=== PATIENT | female | born 2000 | race Two or more races ===

== ENCOUNTER → 2023-05-02 | Outpatient (REF) | payer OTHER | LOC: M PLALAB 14:37 | PROVIDERS: ATTEND Advanced Practice Midwife | DX: Z34.01 Encounter for supervision of normal first pregnancy, first trimester (principal) ==

== ENCOUNTER → 2023-05-02 | Outpatient (CLI) | payer OTHER ==
[2023-05-02 15:48] LABS: HEMATOCRIT 41.1 % (36.0-47.0); HEMOGLOBIN 14.4 g/dl (12.0-15.5); MEAN CORPUSCULAR HEMOGLOBIN 30.9 pg (27.0-33.0); MEAN CORPUSCULAR VOLUME 88.2 fl (80.0-96.0); PLATELET COUNT, AUTOMATED 378 10^3/uL (150-450); RED BLOOD COUNT 4.66 10^6/uL (4.00-5.40); WHITE BLOOD COUNT 12.4 10^3/uL (4.0-10.0)
[2023-05-02 16:47] LABS: HIV 1&2 SCREEN NEGATIVE (NEGATIVE)
[2023-05-02 16:54] LABS: HEPATITIS C VIRUS ABY INDEX 0.04 INDEX (<0.8)
[2023-05-02 17:15] LABS: GC DNA AMPLIFICATION NEGATIVE (NEGATIVE)
== END ==
LOC: M PLALAB 14:51
PROVIDERS: ATTEND Advanced Practice Midwife
DX: Z34.01 Encounter for supervision of normal first pregnancy, first trimester (principal)

== ENCOUNTER → 2023-06-28 | Outpatient (CLI) | payer OTHER | LOC: M WHC 14:28 | PROVIDERS: ATTEND Obstetrics & Gynecology | DX: Z34.92 Encounter for supervision of normal pregnancy, unspecified, second trimester (principal) ==

== ENCOUNTER → 2023-08-15 | Outpatient (CLI) | payer OTHER ==
[2023-08-15 13:59] LABS: HEMOGLOBIN 12.7 g/dl (12.0-15.5); MEAN CORPUSCULAR HEMOGLOBIN 29.7 pg (27.0-33.0); MEAN CORPUSCULAR HGB CONC 33.4 g/dl (32.0-36.5); PLATELET COUNT, AUTOMATED 265 10^3/uL (150-450); RED BLOOD COUNT 4.27 10^6/uL (4.00-5.40)
[2023-08-15 14:08] LABS: LDH LACTATE DEHYDROGENASE 162 U/L (120-246)
[2023-08-15 14:09] LABS: ALT/SGPT 17 U/L (7.0-40); AST/SGOT 14 U/L (<34); BILIRUBIN,TOTAL 0.2 MG/DL (0.3-1.2); CREATININE FOR GFR 0.51 MG/DL (0.55-1.30); GLOMERULAR FILTRATION RATE > 60.0 (>60); GLUCOSE CHALLENGE TEST 1 HOUR 121 MG/DL (LESS THAN 140)
[2023-08-15 14:12] LABS: URIC ACID 4.2 MG/DL (3.1-7.8)
[2023-08-15 14:29] LABS: TOTAL PROTEIN,RANDOM URINE 7.9 MG/DL (0.0-14.0)
[2023-08-15 14:34] LABS: CREATININE,RANDOM URINE 30.6 MG/DL
== END ==
LOC: M PLALAB 09:05
PROVIDERS: ATTEND Advanced Practice Midwife
DX: Z34.02 Encounter for supervision of normal first pregnancy, second trimester (principal)

== ENCOUNTER 2023-08-31 14:42 | Outpatient (CLI) | payer OTHER ==
[~2023-08-31] VITALS: Ht 160 cm; Wt 86.7 kg
[2023-08-31] MEDS ORDERED: PRENTAB9 PO (14:59)
[2023-08-31] MEDS ORDERED: HOME MED LIST COMPLETE! XX SCH (15:00)
[2023-08-31 15:01] VITALS: BP 155/96
[2023-08-31 15:16] VITALS: BP 148/88
[2023-08-31 15:31] VITALS: BP 143/83
[2023-08-31 15:46] VITALS: BP 145/85
[2023-08-31 15:52] LABS: HEMATOCRIT 35.1 % (36.0-47.0); HEMOGLOBIN 12.2 g/dl (12.0-15.5); MEAN CORPUSCULAR HEMOGLOBIN 29.9 pg (27.0-33.0); MEAN CORPUSCULAR HGB CONC 34.8 g/dl (32.0-36.5); PLATELET COUNT, AUTOMATED 245 10^3/uL (150-450); RED BLOOD COUNT 4.08 10^6/uL (4.00-5.40)
[2023-08-31 16:22] LABS: TOTAL PROTEIN,RANDOM URINE < 6.0 MG/DL (0.0-14.0)
[2023-08-31 17:04] LABS: URIC ACID 4.4 MG/DL (3.1-7.8)
[2023-08-31 17:06] LABS: LDH LACTATE DEHYDROGENASE 176 U/L (120-246)
[2023-08-31 17:07] LABS: ALT/SGPT 24 U/L (7.0-40); AST/SGOT 14 U/L (<34); BILIRUBIN,TOTAL 0.2 MG/DL (0.3-1.2); CREATININE FOR GFR 0.45 MG/DL (0.55-1.30); GLOMERULAR FILTRATION RATE > 60.0 (>60)
[2023-08-31] MEDS ORDERED: PROP10TA56 PO (18:17)
== END 2023-08-31 18:26 | disposition home or self-care (01) ==
LOC: M LDO 14:42
PROVIDERS: ATTEND Obstetrics & Gynecology
DX: O16.9 Unspecified maternal hypertension, unspecified trimester (principal); Z3A.39 39 weeks gestation of pregnancy
CPT/HCPCS: 36415; 59025; 82247; 82570; 83615; 84156; 84450; 84460; 84550; 85027; G0463

== ENCOUNTER → 2023-10-20 | Outpatient (REF) | payer OTHER ==
[~2023-10-20] MED LIST: PRENTAB9 PO; PROP10TA56 PO
== END ==
LOC: M PLALAB 10:22
PROVIDERS: ATTEND Obstetrics & Gynecology
DX: Z36.85 Encounter for antenatal screening for Streptococcus B (principal); Z3A.36 36 weeks gestation of pregnancy

== ENCOUNTER → 2023-10-27 | Outpatient (CLI) | payer OTHER | LOC: M WHC 10:44 | PROVIDERS: ATTEND Obstetrics & Gynecology | DX: O28.8 Other abnormal findings on antenatal screening of mother (principal); Z3A.00 Weeks of gestation of pregnancy not specified ==

== ENCOUNTER → 2023-11-01 | Outpatient (CLI) | payer OTHER | LOC: M WHC 06:47 | PROVIDERS: ATTEND Obstetrics & Gynecology | DX: Z36.2 Encounter for other antenatal screening follow-up (principal); O16.3 Unspecified maternal hypertension, third trimester; Z3A.37 37 weeks gestation of pregnancy ==

== ENCOUNTER → 2025-02-13 | Outpatient (CLI) | payer OTHER ==
[~2025-02-13] MED LIST changes: +ACET-683 PO; +IBUP-1022 PO
[2025-02-13 17:21] LABS: PLATELET COUNT, AUTOMATED 283 10^3/uL (150-450)
[2025-02-13 18:21] LABS: HIV 1&2 SCREEN NEGATIVE (NEGATIVE)
[2025-02-13 18:30] LABS: HEPATITIS C VIRUS ABY INDEX < 0.02 INDEX (<0.8)
[2025-02-13 19:59] LABS: Trichomonas vaginalis (AMP) NOT DETECTED (NEGATIVE)
[2025-02-13 20:23] LABS: GC DNA AMPLIFICATION NEGATIVE (NEGATIVE)
== END ==
LOC: M PLALAB 15:59
PROVIDERS: ATTEND Advanced Practice Midwife
DX: Z34.82 Encounter for supervision of other normal pregnancy, second trimester (principal)

== ENCOUNTER → 2025-02-19 | Outpatient (CLI) | payer OTHER | LOC: M RAD 14:02 | PROVIDERS: ATTEND Advanced Practice Midwife | DX: Z34.80 Encounter for supervision of other normal pregnancy, unspecified trimester (principal); Z3A.19 19 weeks gestation of pregnancy ==

== ENCOUNTER → 2025-04-11 | Outpatient (CLI) | payer OTHER ==
[~2025-04-11] MED LIST changes: -IBUP-1022 PO; +IBUP600T42 PO
[2025-04-11 13:54] LABS: GLUCOSE CHALLENGE TEST 1 HOUR 86 MG/DL (LESS THAN 140)
[2025-04-11 14:01] LABS: PLATELET COUNT, AUTOMATED 258 10^3/uL (150-450)
[2025-04-11 14:30] LABS: HIV 1&2 SCREEN NEGATIVE (NEGATIVE)
[2025-04-11 14:38] LABS: HEPATITIS C VIRUS ABY INDEX < 0.02 INDEX (<0.8)
[2025-04-11 14:59] LABS: Trichomonas vaginalis (AMP) NOT DETECTED (NEGATIVE)
[2025-04-11 15:23] LABS: GC DNA AMPLIFICATION NEGATIVE (NEGATIVE)
== END ==
LOC: M PLALAB 10:32
PROVIDERS: ATTEND Obstetrics & Gynecology
DX: Z34.80 Encounter for supervision of other normal pregnancy, unspecified trimester (principal)

== ENCOUNTER → 2025-04-16 | Outpatient (CLI) | payer OTHER | LOC: M WHC 13:56 | PROVIDERS: ATTEND Obstetrics & Gynecology | DX: O32.2XX0 Maternal care for transverse and oblique lie, not applicable or unspecified (principal); Z3A.26 26 weeks gestation of pregnancy ==

== ENCOUNTER → 2025-05-29 | Outpatient (CLI) | payer OTHER | LOC: M WHC 14:04 | PROVIDERS: ATTEND Obstetrics & Gynecology | DX: Z34.83 Encounter for supervision of other normal pregnancy, third trimester (principal) ==

== ENCOUNTER → 2025-06-17 | Outpatient (REF) | payer OTHER | LOC: M SFHCWAGY 15:13 | PROVIDERS: ATTEND Obstetrics & Gynecology | DX: Z36.85 Encounter for antenatal screening for Streptococcus B (principal); Z3A.35 35 weeks gestation of pregnancy ==

== ENCOUNTER 2025-07-16 19:54 | Inpatient (IN) | payer OTHER ==
[2025-07-16] MEDS ORDERED: TRANEXAMIC ACID INJection 1,000 MG in NS 100 ML IV PRN (20:00)
[2025-07-16] MEDS ORDERED: CARBOPROST TROMETHAMINE 250 MCG/ML AMP IM PRN (20:00)
[2025-07-16] MEDS ORDERED: LIDOCAINE 1% MDV 20 ML VIAL INFIL PRN (20:00)
[2025-07-16] MEDS ORDERED: METHYLERGONOVINE MALEATE 0.2 MG/ML 1 ML VIAL IM PRN (20:00)
[2025-07-16] MEDS ORDERED: OXYTOCIN INJ 10UNITS/ML 1ML VIAL IV PRN (20:00)
[2025-07-16] MEDS ORDERED: OXYTOCIN DRIP 30 UNITS in IV 1 EA IV PRN (20:00)
[2025-07-16 20:22] LABS: PLATELET COUNT, AUTOMATED 214 10^3/uL (150-450)
[2025-07-16] MEDS: diphenhydrAMINE 50 MG/ML VIAL IV STA (20:44)
[2025-07-16] MEDS ORDERED: diphenhydrAMINE 50 MG/ML VIAL As Ordered ONE (20:46)
[2025-07-16 21:16] LABS: HIV 1&2 SCREEN NEGATIVE (NEGATIVE)
[2025-07-16] MEDS ORDERED: CALCIUM CARBONATE 500 MG CHEW U/D PO PRN (21:55)
[2025-07-16] MEDS ORDERED: DOCUSATE SODIUM 100 MG CAPSULE PO PRN (21:55)
[2025-07-16] MEDS ORDERED: ACETAMINOPHEN 325 MG TAB PO PRN (21:55)
[2025-07-16] MEDS ORDERED: MOM 30 ML SUSPENSION UDC PO PRN (21:55)
[2025-07-16] MEDS ORDERED: IBUPROFEN 600 MG TAB PO PRN (21:55)
[2025-07-16] MEDS ORDERED: RHOGAM 300MCG (1500IU) INJ IM SCH (21:55)
[2025-07-16] MEDS ORDERED: ANUSOL HC CREAM 30 GM TOP PRN (21:55)
[2025-07-16] MEDS ORDERED: DIBUCAINE 1% OINTMENT 30 GM TOP PRN (21:55)
[2025-07-16] MEDS ORDERED: METHYLERGONOVINE MALEATE 0.2 MG TAB PO PRN (21:55)
[2025-07-16] MEDS ORDERED: IBUPROFEN 800 MG TAB PO PRN (21:55)
[2025-07-16] MEDS ORDERED: ACETAMINOPHEN 500 MG TAB PO PRN (21:55)
[2025-07-16 22:12] VITALS: BP 128/78
[2025-07-16 22:54] VITALS: BP 134/73; O2SAT 98
[2025-07-17 06:00] VITALS: BP_SYST 126; BP_SYST 135; BP_DIAS 77; BP_DIAS 84; O2SAT 97; O2SAT 98
[2025-07-17] MEDS: MEASLES,MUMPS,RUBELLA VACCINE INJ (MMR-II) SC.IMMUN ONE (09:04)
[2025-07-17] MEDS: PRENATAL VITAMINS CHEWABLE TABLET PO SCH (09:14)
== END 2025-07-17 12:00 | disposition home or self-care (01) | DRG 807 ==
LOC: M LDO 19:54 → M LDI 20:01 → M OBS 21:30
PROVIDERS: ADMIT Obstetrics & Gynecology; ATTEND Obstetrics & Gynecology
PROC: 10E0XZZ Delivery of Products of Conception, External Approach (ICD-10-PCS; principal; 2025-07-16)
DX: O80 Encounter for full-term uncomplicated delivery (principal); Z37.0 Single live birth; Z3A.40 40 weeks gestation of pregnancy